=== PATIENT | male | born 1955 | race Caucasian/White ===

== ENCOUNTER 2017-01-17 09:34 | Observation (INO) | payer BC ==
--- NOTE | ~2017-01-17 | HP ---
Unit #: [id number] #: [id number] Patient: SARAH HALE [id number] [address] [address] [id number] I MR#: [id number] NAME: SARAH HALE. ROOM: 579 Age: 61 Sex: M Admission Date: 01/17/2017 : 1955 Attending Physician: Mónica Llanes M.D. Referring Physician: Mónica Llanes M.D. Primary Care Physician: Kayla Monroy M.D. HISTORY AND PHYSICAL DATE OF ANTICIPATED ADMISSION/PROCEDURE January 31, 2017 HISTORY OF PRESENT ILLNESS This is a 61-year-old male known to Dr. Anaya seen in preop testing for a planned left ankle surgery to be done January 31, 2017. EKG showed atrial fibrillation with rapid ventricular rate in the 120s. Patient denies any palpitations, shortness of air, or chest discomfort. He does have a history of paroxysmal atrial fibrillation but has been in normal sinus rhythm for the last year according to the patient. He takes no antiarrhythmics or anticoagulants. He also has a prior history of cardiomyopathy with a documented EF of 30% to 35% per echo in November 2014. In addition, he has a history of diabetes mellitus type 2, chronic kidney disease, hyperlipidemia, hypertension, frequent alcohol use, hypothyroidism, and steatohepatitis. PAST MEDICAL HISTORY 1. Paroxysmal atrial fibrillation, not on anticoagulants. 2. Diabetes mellitus type 2. 3. Chronic kidney disease. 4. Hyperlipidemia. 5. Hypertension. 6. Steatohepatitis. 7. Hypothyroidism. 8. Ethyl alcohol abuse. 9. Tobacco abuse, quit in 2008. 10. Cardiomyopathy with EF of 30% to 35% per November 2014 echo. PAST SURGICAL HISTORY 1. Back surgery in 2007. 2. Right rotator cuff surgery. 3. Umbilical hernia repair. 4. Right hip replacement. 5. Right knee arthroscopy. 6. Left hip replacement. 7. Left knee arthroscopy. SOCIAL HISTORY Patient formerly chewed tobacco but quit in 2008. He does have a history of ETOH abuse. He drinks two vodkas daily reportedly. He denies illicit drug use. FAMILY HISTORY His brother from sudden at age 44. Unit #: [id number] #: [id number] Patient: SARAH HALE ALLERGIES Morphine. HOME MEDICATIONS 1. Synthroid 0.137 mg p.o. once daily. 2. Atorvastatin 40 mg p.o. at bedtime. 3. Januvia 100 mg p.o. once daily. 4. Glimepiride 4 mg p.o. twice daily. 5. Lasix 20 mg p.o. daily. 6. Entresto 24/26 mg tablet 1 tab twice daily. REVIEW OF SYSTEMS Otherwise negative except for what was stated in the History of Present Illness. PHYSICAL EXAMINATION GENERAL: This is a pleasant, 61-year-old male. He is up ad jos and in no acute distress. VITAL SIGNS: Blood pressure 120/68, heart rate 88, temperature 97.7, respiratory rate 18, and saturating 99% on room air. HEENT: Head is atraumatic and normocephalic. Pupils are equal and round. Mucous membranes are moist. NECK: Supple. Trachea is midline. Negative for JVD. LUNGS: Clear to auscultation. CARDIOVASCULAR: S1 and S2, irregularly irregular rhythm. No significant murmurs, rubs, or gallops auscultated. ABDOMEN: Soft, nontender, and nondistended. EXTREMITIES: Pulses are palpable. No pedal edema. No cyanosis. NEUROLOGIC: Alert and oriented x3. Moves all extremities equally and follows commands without difficulty. DIAGNOSTIC STUDIES LABORATORY: CBC and CMP currently pending. CARDIOLOGY: Atrial fibrillation with a ventricular rate of 102. ASSESSMENT 1. Paroxysmal atrial fibrillation with rapid ventricular rate. 2. Cardiomyopathy of questionable etiology with ejection fraction of 30% to 35% per echocardiogram in November 2014. 3. Left posterior tibia tendon tear with planned repair on January 31, 2017. 4. Hypertension. 5. Hyperlipidemia. 6. Diabetes mellitus type 2. 7. Ethyl alcohol abuse. 8. Steatohepatitis. 9. Hypothyroidism. PLAN 1. We will admit to telemetry unit for observation. 2. He is a Full Code. 3. Cardizem bolus and Cardizem drip titrating to keep heart rate less than 100. 4. Anticoagulate with Lovenox. 5. Check TSH level. 6. Echocardiogram. 7. BMP and CBC today, as well as magnesium level. Unit #: [id number] #: [id number] Patient: SARAH HALE 8. Accu-Cheks a.c. and at bedtime. 9. Continue home medications. See home medication reconciliation sheet. 10. Healthy heart, diabetic diet. 11. He will likely need long-term anticoagulation. We will ask career development specialist to check the cost of Eliquis. With his history of chronic kidney disease, he may require renal dose. Await CMP results. 1. Dictated by Nidhi Gomez APRN for Len Campoverde TD: 01/17/2017 17:30 JOB #: [id number] HISTORY AND PHYSICAL Page 1 of 1 X X HISTORY AND PHYSICAL
--- NOTE | ~2017-01-17 | EKG ---
PATIENT: SARAH HALE UNIT #: [id number] Ventricular Rate: 130 BPM Atrial Rate: 153 BPM QRS Duration: 72 ms Q-T Interval: 300 ms QTC Calculation(Bezet): 441 ms Calculated R [place]: 44 degrees Calculated T [place]: 54 degrees Diagnosis Line: Atrial fibrillation with rapid ventricular Diagnosis Line: response with premature ventricular or aberrantly Diagnosis Line: conducted complexes Diagnosis Line: Abnormal ECG Diagnosis Line: When compared with ECG of 30-MAY-2015 12:06, Diagnosis Line: Vent. rate has increased BY 43 BPM Diagnosis Line: Nonspecific T wave abnormality no longer evident Diagnosis Line: in Inferior leads Diagnosis Line: Confirmed by ELIZABETH ELIZABETH MD ([id number]) on Diagnosis Line: 01/17/2017 4:42:55 PM INTERPRETING MD: CLARA CROW
--- NOTE | ~2017-01-17 | DS ---
Unit #: [id number] #: [id number] Patient: SARAH HALE [id number] [address] [place], [place] [address] [id number] I MR#: [id number] NAME: SARAH HALE. ROOM: 579 Age: 61 Sex: M Admission Date: 01/17/2017 : 1955 Discharge Date: 01/18/2017 Attending Physician: Mónica Llanes M.D. Referring Physician: Mónica Llanes M.D. Primary Care Physician: Kayla Monroy M.D. DISCHARGE SUMMARY DISCHARGE DIAGNOSES 1. Paroxysmal atrial fibrillation with a controlled ventricular rate. 2. Cardiomyopathy with ejection fraction of 55% per echo 01/17/2017. 3. Left posterior tendon tibia tear. 4. Hypertension. 5. Hyperlipidemia. 6. Diabetes mellitus type 2. 7. History of ETOH abuse. 8. Steatohepatitis. 9. Hypothyroidism. DISCHARGE MEDICATIONS 1. Lopressor 50 mg by mouth twice a day. 2. Eliquis 5 mg by mouth twice a day. 3. Lipitor 40 mg by mouth once a day. 4. Entresto 24/26 mg by mouth twice a day. 5. Lasix 20 mg by mouth once a day. 6. Januvia 100 mg by mouth every morning. 7. Levoxyl 0.1375 mg by mouth once a day. 8. Glimepiride 4 mg by mouth twice daily. HOSPITAL COURSE This is a 61-year-old male, known to Dr. Anaya, who presented to the hospital on January 17 for preadmission testing for a planned left ankle surgery to be done January 31, 2017. An EKG revealed he was in A-fib with a rapid ventricular rate in the 120s. He denied any palpitations, shortness of air or chest discomfort. He was admitted to telemetry unit for observation. He was bolused with Cardizem and started on a Cardizem drip, as well as started on a p.o. beta latricia. He remained in A-fib throughout the evening but his heart rate decreased down to the 60s. The Cardizem drip was stopped. This morning, he is A-fib with controlled ventricular rate of 89. He would like to go home and is stable for discharge. His CHADS-2 VASc score is a 3 and he will need termite helper anticoagulation. He has been started on Eliquis 5 mg twice a day. He did experience isolated episode of his heart rate increased to the 140s this morning when he was up moving around in his room. We will increase his beta latricia to 50 mg twice a day. He is scheduled for a followup appointment with Dr. Anaya on 01/27/2017, and he is aware that he needs to keep that appointment. ASSESSMENT VITAL SIGNS: Temp 98.4, heart rate 89, respiratory rate 18, blood pressure 116/63. GENERAL: Alert and oriented x3. 61-year-old male in no acute Unit #: [id number] #: [id number] Patient: SARAH HALE. HEART: S1, S2, irregularly irregular. No murmurs, rubs or clicks. LUNGS: Clear. ABDOMEN: Soft, nontender, nondistended. EXTREMITIES: No edema. Pedal pulses are palpable. No cyanosis. DIAGNOSTIC STUDIES LABORATORY: Sodium 135, potassium 4.5, chloride 101, BUN 24, creatinine 1.4, glucose 168, mag 1.6, hemoglobin 13.7, hematocrit 40.4, white blood cell count 6, platelets 116, AST 61, ALT 40, alkaline phos. 42. TSH was 0.81. CARDIOVASCULAR: Echo showed an LVEF of 55% with no wall abnormalities. DISCHARGE INSTRUCTIONS 1. Lopressor 50 mg twice a day. 2. Eliquis 5 mg twice a day. 3. Continue home medications. 4. The patient will be discharged home today. 5. Follow up with Dr. Anaya at already scheduled appointment at 01/27/2017. Dictated by... Nidhi Gomez APRN for Carson Coto M.D. SIMONE/rodrigo TD: 01/19/2017 11:22 JOB #: [id number] DISCHARGE SUMMARY Page 1 of 1 X X DISCHARGE SUMMARY
[~2017-01-17 09:34] MED LIST: AMOX TR-K CLV 81 TA1 PO; ATORVASTATIN CA20 MG PO; ATORVASTATIN CA40 MG PO; BAYER ASPIRIN325 M1 PO; CELEBREX PO; COUMADIN7.5 MG PO; DIGOX0.25 MG PO; ELIQUIS5 MG PO; ETODOLAC500 MG PO; FISH OIL500 MG PO; GLIMEPIRIDE2 MG PO; GLUCOPHAGE500 M1 PO; GLUCOPHAGE500 MG PO; GLUCOSAMINE & C1 CAP PO; HYDROCODON-ACE1 EAC5 PO; HYDROCODON-ACE1 EAC7 PO; JANUVIA PO; LASIX20 MG PO; LEG CRAMPS PO; LEVOTHROID125 MCG PO; LIPITOR20 MG PO; LISINOPRIL20 MG PO; LISINOPRIL5 MG PO; LORTAB 7.5-5001 TAB PO; LORTAB PO; METFORMIN HCL500 M1 PO; METOPROLOL SUCC50 MG PO; MULTIVITAMIN1 UDCAP PO; NORCO 5/325 TAB1 TAB PO; PREVACID15 M1 PO; SYNTHROID PO; SYNTHROID0.05 MG; SYNTHROID125 PO; ZYVOX600 MG PO; [UNRECOGNIZED DRUG - REMARK]
[2017-01-17] MEDS ORDERED: LASIX20 MG PO (10:16)
[2017-01-17] MEDS ORDERED: ENTRESTO 24 MG1 EACH (10:17)
[2017-01-17 11:32] LABS: HEMATOCRIT 45.5 % (38.0-50.0); HEMOGLOBIN 15.2 gm/dL (13.0-16.0); MEAN CELL VOLUME 107.6 FL (83-96); MEAN CORPUSCULAR HGB CONC 33.4 g/dL (30-36); MEAN PLATELET VOLUME 8.5 FL (6.5-11.5); RED BLOOD COUNT 4.23 X10e (3.90-5.60); RED CELL DISTRIBUTION WIDTH 13.6 % (11.0-15.5); WHITE BLOOD COUNT 6.3 X10e3 (4.0-10.5)
[2017-01-17 12:17] LABS: ALBUMIN SERUM 4.6 g/dL (3.5-5.0); BUN/CREATININE RATIO 15.38; CALCIUM SERUM 9.9 mg/dL (8.4-10.2); CREATININE SERUM 1.3 mg/dL (0.6-1.4); GLOM FILT RATE Estimated 59.7 mL/min (>60); POTASSIUM 4.9 mmol/L (3.5-5.1); PROTEIN TOTAL SERUM 7.5 g/dL (6.0-8.3)
[2017-01-18 00:47] LABS: BASOPHIL# 0.1 X10e3 (0-0.3); BASOPHIL% 1.1 % (0-2.5); EOSINOPHIL# 0.5 X10e3 (0-0.7); EOSINOPHIL% 6.2 % (0.0-7.0); HEMATOCRIT 43.4 % (38.0-50.0); HEMOGLOBIN 14.6 gm/dL (13.0-16.0); LYMPHOCYTE# 2.8 X10e3 (1.0-3.5); LYMPHOCYTE% 36.7 % (17.0-45.0); MEAN CELL VOLUME 107.8 FL (83-96); MEAN CORPUSCULAR HEMOGLOBIN 36.2 PG (28-34); MEAN CORPUSCULAR HGB CONC 33.6 g/dL (30-36); MEAN PLATELET VOLUME 8.7 FL (6.5-11.5); MONOCYTE# 0.8 X10e3 (0-1.0); NEUTROPHIL# 3.4 X10e3 (1.5-7.1); PLATELET COUNT 127 X10e3 (140-420); RED BLOOD COUNT 4.02 X10e (3.90-5.60); RED CELL DISTRIBUTION WIDTH 13.2 % (11.0-15.5); WHITE BLOOD COUNT 7.6 X10e3 (4.0-10.5)
[2017-01-18 00:48] LABS: DIFF IND YES
[2017-01-18 01:32] LABS: ANISOCYTOSIS SL; OVALOCYTES PRESENT; PLATELET ESTIMATE DECREASED (NORMAL)
[2017-01-18 05:52] LABS: BASOPHIL# 0.1 X10e3 (0-0.3); EOSINOPHIL# 0.4 X10e3 (0-0.7); EOSINOPHIL% 6.6 % (0.0-7.0); HEMATOCRIT 40.4 % (38.0-50.0); HEMOGLOBIN 13.7 gm/dL (13.0-16.0); LYMPHOCYTE# 1.9 X10e3 (1.0-3.5); LYMPHOCYTE% 31.8 % (17.0-45.0); MEAN CELL VOLUME 106.5 FL (83-96); MEAN CORPUSCULAR HEMOGLOBIN 36.2 PG (28-34); MEAN PLATELET VOLUME 8.5 FL (6.5-11.5); MONOCYTE# 0.8 X10e3 (0-1.0); MONOCYTE% 12.5 % (3.0-12.0); NEUTROPHIL# 2.9 X10e3 (1.5-7.1); NEUTROPHIL% 48.1 % (40-75); PLATELET COUNT 116 X10e3 (140-420); RED BLOOD COUNT 3.79 X10e (3.90-5.60); RED CELL DISTRIBUTION WIDTH 13.6 % (11.0-15.5)
[2017-01-18 05:53] LABS: DIFF IND NO
[2017-01-18 06:29] LABS: BUN/CREATININE RATIO 17.14; CALCIUM SERUM 9.7 mg/dL (8.4-10.2); CREATININE SERUM 1.4 mg/dL (0.6-1.4); GLOM FILT RATE Estimated 54.6 mL/min (>60); MAGNESIUM 1.6 mg/dL (1.6-3.0); POTASSIUM 4.5 mmol/L (3.5-5.1)
[2017-01-18] MEDS ORDERED: LOPRESSOR PO (12:26)
[2017-01-18] MEDS ORDERED: ELIQUIS5 MG PO (12:27)
== END 2017-01-18 13:54 | disposition home or self-care (01) | DRG 310 ==
LOC: CAMB 09:34 → CEDOF 11:30 → CAMB 11:57 → C5C 11:57 → CEDOF 13:10 → C5C 13:10
PROVIDERS: Orthopaedic Surgery
DX: I48.0 Paroxysmal atrial fibrillation (principal); I42.9 Cardiomyopathy, unspecified; S86.112A Strain of other muscle(s) and tendon(s) of posterior muscle group at lower leg level, left leg, initial encounter; I10 Essential (primary) hypertension; E78.5 Hyperlipidemia, unspecified; E11.9 Type 2 diabetes mellitus without complications; Z79.01 Long term (current) use of anticoagulants; Z79.84 Long term (current) use of oral hypoglycemic drugs; K75.81 Nonalcoholic steatohepatitis (NASH); E03.9 Hypothyroidism, unspecified; F10.10 Alcohol abuse, uncomplicated; Z87.891 Personal history of nicotine dependence; Z88.5 Allergy status to narcotic agent
CPT/HCPCS: 36415; 80048; 80053; 82947; 83735; 84443; 85025; 85027; 93005; 93306; 96372; G0378; J1650; J3475

== ENCOUNTER 2017-01-31 05:22 | Inpatient (IN) | payer BC ==
--- NOTE | ~2017-01-31 | DS ---
Unit #: [id number] #: [id number] Patient: SARAH HALE [id number] [address] [place], [place] [address] [id number] I MR#: [id number] NAME: SARAH HALE ROOM: 575 Age: 61 Sex: M Admission Date: 01/31/2017 : 1955 Discharge Date: 02/03/2017 Attending Physician: Mónica Llanes M.D. Referring Physician: Mónica Llanes M.D. Primary Care Physician: Kayla Monroy M.D. DISCHARGE SUMMARY REASON FOR ADMISSION Patient was admitted on 01/31/2017 with the preoperative diagnosis of left ankle degenerative joint disease with a posterior tibial tendon tear. DISCHARGE DIAGNOSIS Status post left ankle fusion with lateral column lengthening, Cotton procedure, flexor digitorum longus transfer. 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 He has been using an antiinflammatory medication for pain. Patient was not responding to conservative treatment. Radiographs were consistent with a stage 4 posterior tibial tendon dysfunction and ankle degenerative joint disease. Patient agreed to surgical intervention. PAST MEDICAL HISTORY Past medical history is positive for alcohol abuse, hyperlipidemia, hypothyroidism, osteopenia, type 2 diabetes and degenerative disc disease. PAST SURGICAL HISTORY Prior surgical history included back surgery, hernia repair, hip replacement, inguinal hernia repair, rotator cuff repair, left knee replacement, right carpal tunnel surgery. SOCIAL HISTORY The patient does not smoke. He has a history of alcohol abuse. ALLERGIES Morphine derivatives. PHYSICAL EXAMINATION UPON ADMISSION GENERAL APPEARANCE: Obese male in no acute distress. HEENT: Clear. NECK: Supple without masses. HEART: With a regular sinus rhythm, without murmurs or gallops. LUNGS: His lungs were clear. ABDOMEN: Abdomen was soft and nontender, without palpable masses or organomegaly. EXTREMITIES: The patient's left lower extremity with flat arch and abduction of the forefoot. The patient's right heel is in 2 degrees of valgus. Positive rjc-[id number]-zkys sign. Patient is unable to perform a single left heel rise. Left ankle dorsiflexion with the foot held in the Unit #: [id number] #: [id number] Patient: SARAH HALE corrected position is -10 degrees. Plantar flexion is to 40 degrees. Subtalar motion is normal. First MTP joint is normal. Patient has point tenderness over the anterior space of the tibiotalar joint. Motor exam is normal except for no active inversion of the hindfoot. Posterior tibial tendon is not palpated. Pulses were normal. Sensation was normal. HOSPITAL COURSE Patient underwent surgical intervention on date of admission, was transferred to the PACU and then to telemetry floor. He was doing well until postop day two, developed atrial fibrillation and flutter. Seen by Cardiology and was able to be converted to sinus rhythm with medical management of amiodarone. He was seen by physical therapy while he was in the hospital. On postop day three he was stable from a Cardiology standpoint and was ready to be discharged. DISCHARGE MEDICATIONS The patient's discharge medications are as follows: 1. Entresto 24/26 mg tablet one tablet b.i.d. 2. Eliquis 5 mg one p.o. b.i.d. 3. Januvia 100 mg p.o. q.a.m. 4. Atorvastatin 40 mg one p.o. q.h.s. 5. Cartia XT 120 mg one tab p.o. b.i.d. 6. Lopressor 50 mg one p.o. b.i.d. 7. Lasix 20 mg one p.o. daily. 8. Lipitor 40 mg one p.o. q.h.s. 9. Oxycodone was prescribed for pain 05/325 one to two tablets q.4-6 h. p.r.n. for pain. 10. Glimepiride 4 mg one p.o. b.i.d. 11. Levothyroxine 0.137 mg daily before breakfast. 12. Amiodarone 200 mg two tabs on night of discharge, two tabs b.i.d. the following day then 200 mg p.o. daily. DISCHARGE INSTRUCTIONS 1. Patient is to be strictly nonweightbearing on the left lower extremity. 2. Dressing is to remain clean, dry and intact until followup appointment in our office. 3. The patient's postoperative followup is scheduled within the next 10 to 14 days in the office. 4. He was instructed to follow up with cardiology in four days from discharge. 5. Any questions or concerns, he is to call our office [phone]. Dictated by... Saloni Cerda P.A.-C. for Len Rashid/arleen TD: 02/07/2017 14:29 JOB #: [id number] Unit #: [id number] #: [id number] Patient: SARAH HALE DISCHARGE SUMMARY Page 1 of 1 X Saloni Cerda DISCHARGE SUMMARY
--- NOTE | ~2017-01-31 | EKG ---
PATIENT: SARAH HALE UNIT #: [id number] Ventricular Rate: 114 BPM Atrial Rate: 258 BPM QRS Duration: 72 ms Q-T Interval: 308 ms QTC Calculation(Bezet): 424 ms Calculated R [place]: 46 degrees Calculated T [place]: -10 degrees Diagnosis Line: Atrial fibrillation with rapid ventricular Diagnosis Line: response with premature ventricular or aberrantly Diagnosis Line: conducted complexes Diagnosis Line: Low voltage QRS Diagnosis Line: Abnormal ECG Diagnosis Line: When compared with ECG of 17-JAN-2017 10:05, Diagnosis Line: Nonspecific T wave abnormality now evident in Diagnosis Line: Inferior leads Diagnosis Line: Confirmed by ELIZABETH ELIZABETH MD ([id number]) on Diagnosis Line: 02/02/2017 3:07:59 PM INTERPRETING MD: CLARA CROW
--- NOTE | ~2017-01-31 | CO ---
Unit #: [id number] #: [id number] Patient: SARAH HALE [id number] [address] [address] [id number] I MR#: [id number] NAME: SARAH HALE. ROOM: 452 Age: 61 Sex: M Admission Date: 01/31/2017 : 1955 Attending Physician: Mónica Llanes M.D. Primary Care Physician: Kayla Monroy M.D. Consultation Date: 01/31/2017 CONSULTATION REPORT REASON FOR CONSULTATION Diabetic management. HISTORY OF PRESENT ILLNESS The patient is a 61-year-old male with past medical history of hypertension, hyperlipidemia, diabetes, atrial fibrillation, chronic anticoagulation, hypothyroidism, alcohol abuse, who was admitted by Dr. Llanes for left ankle surgery. The patient has had ongoing foot pain and deformity. He has reportedly been treated with a Cam boot. Per record review, radiographs were consistent with stage 4 posterior tibial tendon dysfunction. He was admitted for ankle fusion and flatfoot reconstruction. He underwent that procedure today. Regarding the patient's chronic medical conditions, the patient states that he has been taking his medications as prescribed. He is a daily drinker. He drinks two drinks daily, his last drink was yesterday. He states that his blood sugars have been in the 120 to 130 range. PAST MEDICAL HISTORY 1. Admission to [facility] 01/17 through 01/18/2017 for atrial fibrillation. He was discharged home on Eliquis. He is followed by Dr. Anaya. 2. Hypertension. 3. Hyperlipidemia. 4. Hypothyroidism. 5. Diabetes. 6. Echocardiogram, per the discharge summary 01/17/2017, showed an ejection fraction of 55%. PAST SURGICAL HISTORY 1. Left ankle surgery. 2. Back surgery. 3. Rotator cuff surgery. 4. Umbilical hernia repair. 5. Right hip replacement. 6. Right knee surgery. 7. Left hip replacement. 8. Left knee surgery. HOME MEDICATIONS 1. Synthroid 0.137 mg daily. 2. Atorvastatin 40 mg daily. Unit #: [id number] #: [id number] Patient: SARAH HALE 3. Januvia 100 mg daily. 4. Glimepiride 4 mg b.i.d. 5. Lasix 20 mg daily. 6. Entresto 24/26 b.i.d. 7. Lopressor 50 mg b.i.d. 8. Eliquis 5 mg b.i.d. ALLERGIES Morphine. SOCIAL HISTORY The patient denies tobacco use. He formerly chewed tobacco. He has a history of alcohol abuse. He drinks two vodka drinks daily. He denies illicit drug use. FAMILY HISTORY Notable for his brother dying at the age of 44. REVIEW OF SYSTEMS A complete review of systems is negative except as indicated in the HPI. PHYSICAL EXAMINATION VITAL SIGNS: Temperature 97.7, pulse 52, respirations 19, blood pressure 84/46, oxygen saturation not recorded. GENERAL: The patient is a male who is awake and alert in no acute distress. HEENT: Head is atraumatic. Mucous membranes are moist. NECK: Supple. Trachea is midline. LUNGS: Clear to auscultation bilaterally with no increased work of breathing. HEART: Irregular. ABDOMEN: Soft, nontender. Bowel sounds present in all four quadrants. EXTREMITIES: A left Mikel bandage is in place. There is no pedal edema involving the right leg. NEUROLOGIC: Patient is awake and alert. He follows commands. PSYCHIATRIC: Mood and affect are normal. Patient is cooperative. SKIN OF EXAMINED AREAS: Warm and dry. DIAGNOSTIC STUDIES LABORATORY: Accu-Cheks 134. ASSESSMENT The patient is a 61-year-old male with: 1. Status post left ankle surgery. 2. Hypotension. 3. Diabetes. 4. Hyperlipidemia. 5. Atrial fibrillation. 6. Chronic anticoagulation with Eliquis. 7. Hypothyroidism. 8. Alcohol abuse with last drink being yesterday. PLAN 1. Regarding hypotension, I have ordered a 500 mL normal saline bolus. I have discontinued his ACTUARY pump. I have changed him to a monitored bed and will hold antihypertensive medications for now. Will continue to monitor blood pressure closely. 2. Regarding diabetes, I have ordered low-dose sliding scale insulin Unit #: [id number] #: [id number] Patient: ALEXIASARAH Knight with Accu-Cheks. 3. Regarding hypothyroidism, I have ordered a TSH. 4. Regarding alcohol abuse, I have ordered thiamine, multivitamin and folic acid as well as the [place] protocol. Thank you very much for the consultation. Will follow the patient along closely with you. Dictated by... Len Candelaria/mary TD: 01/31/2017 15:55 JOB #: [id number] CONSULTATION REPORT Page 1 of 1 X Talita Thompson MD X CONSULTATION REPORT
--- NOTE | ~2017-01-31 | OR ---
Unit #: [id number] #: [id number] Patient: SARAH HALE [id number] [address] [place], [place] [address] [id number] I MR#: [id number] NAME: SARAH HALE ROOM: 452 Date of Procedure: 01/31/2017 Admission Date: 01/31/2017 Surgeon: Mónica Llanes M.D. : 1955 Attending Physician: Mónica Llanes M.D. Referring Physician: Mónica Llanes M.D. Primary Care Physician: aKyla Monroy M.D. OPERATIVE REPORT PREOPERATIVE DIAGNOSES 1. Left ankle degenerative arthritis. 2. Stage IV left posterior tibial tendon tear. POSTOPERATIVE DIAGNOSES 1. Left ankle degenerative arthritis. 2. Stage IV left posterior tibial tendon tear. PROCEDURES PERFORMED 1. Left ankle fusion (71166). 2. Left flexor digitorum longus tendon transfer to navicular (29707). 3. Left Cotton procedure (dorsal opening wedge osteotomy of medial cuneiform) (07823). 4. Left lateral column lengthening (26048). ASSISTANTS MD Radha and ROBERTO Lane ANESTHESIA Popliteal saphenous block and general. INDICATIONS FOR SURGERY The patient is a 61-year-old male with stage IV left posterior tibial tendon dysfunction, which has been unresponsive to conservative care. He is now to undergo ankle fusion with reconstruction of his foot deformity. DESCRIPTION OF PROCEDURE The patient underwent popliteal saphenous block to the left leg. He was taken to the operating room and placed in a supine position, and general anesthetic was induced. The left leg was then prepped and draped in the usual sterile fashion. The leg was exsanguinated and the thigh tourniquet inflated to 300 mmHg. An anterolateral longitudinal incision was made over the ankle measuring 8 cm. Subcutaneous tissue was divided. Superficial peroneal nerve was identified and preserved. The extensor retinaculum was opened. The extensor tendons were retracted medially. The joint was exposed with subperiosteal dissection. The power osteotome, curved curettes, and rongeurs were utilized to remove the articular cartilage from both sides of the arthritic ankle joint. The underlying subchondral bone was then roughened with the power osteotome. 3 mL of Augment platelet-derived growth factor as well as allograft bone chips were placed into the tibiotalar joint. The joint was then positioned appropriately and fixated with 2 crossed OrthoHelix 7.0 mm diameter Unit #: [id number] #: [id number] Patient: SARAH HALE cannulated screws. Excellent fixation was achieved, and intraoperative C-arm fluoroscopy documented screw position and joint position. A lateral longitudinal incision was then made over the anterior calcaneus. Subcutaneous tissue was divided. The lateral calcaneus was exposed with subperiosteal dissection. The calcaneocuboid joint was then pinned in neutral position with a 0.062-inch diameter smooth K-wire. The microsagittal saw was then used to osteotomize the calcaneus at the angle of Gissane 2 cm proximal to the calcaneocuboid joint. The osteotomy was then opened with the power osteotome. A trial reduction with an 8-mm Memorado Biofoam metal wedge fit most appropriately and reduced the talonavicular joint deformity. The wedge was then impacted into place with excellent fit and fill of the osteotomy site. No additional fixation was required. A medial longitudinal incision was then made over the posterior tibial tendon sheath measuring 6 cm. The subcutaneous tissue was divided. The tendon sheath was opened. There was extensive scarring of the tendon to the surrounding sheath and it was totally dysfunctional. The posterior tibial tendon was then excised. There was a tear in the spring ligament. The tear was freshened with a #15 scalpel blade and then the spring ligament was repaired with multiple #2 FiberWire [id number] sutures. The flexor digitorum longus tendon was then identified in its sheath and it was cut at the Knot of Cheo. A 4.5 mm diameter OrthoHelix suture anchor was then placed in the navicular under C-arm fluoroscopic control, and the two attached #2 FiberWire sutures were used to repair the FDL tendon back down to the navicular. An excellent repair was achieved. A dorsal longitudinal incision was then made over the medial cuneiform. The extensor hallucis longus tendon was retracted. The medial cuneiform was exposed with subperiosteal dissection. A K-wire was placed in a center-center position into the medial cuneiform, and this K-wire was used as a guide to osteotomize the medial cuneiform from dorsal to plantar, leaving the plantar cortex intact. A trial reduction was performed with a 6.5 mm wide trial and this fit appropriately. Therefore, the Memorado Biofoam cotton wedge measuring 20 mm x 6.5 mm in width was impacted into place and this corrected the residual forefoot varus nicely. All wounds were copiously irrigated. The deep tendon sheaths were closed with 2-0 Vicryl [id number] sutures. The extensor retinaculum was closed with 2-0 Vicryl, subcutaneous tissue was closed with 3-0 Vicryl, and the skin was closed with 3-0 nylon horizontal mattress sutures. Xeroform gauze dressing, sponges, Webril, and a posterior fiberglass splint were applied. The patient was then transported to the recovery room in stable condition. ESTIMATED BLOOD LOSS Minimal. COMPLICATIONS None. SPECIMENS None. TOURNIQUET TIME 2 hours and 5 minutes. Unit #: [id number] #: [id number] Patient: CHEOSARAH Antonia Gomez by..Len Castaneda/deng TD: 02/01/2017 04:54 JOB #: [id number] OPERATIVE REPORT Page 1 of 1 X Dana Llanes MD X PROCEDURE OPERATIVE NOTE
--- NOTE | ~2017-01-31 | EKG ---
PATIENT: SARAH HALE UNIT #: [id number] Ventricular Rate: 135 BPM Atrial Rate: 270 BPM QRS Duration: 84 ms Q-T Interval: 286 ms QTC Calculation(Bezet): 429 ms P [place]: 265 degrees Calculated R [place]: 46 degrees Calculated T [place]: 15 degrees Diagnosis Line: Atrial flutter with 2:1 A-V conduction Diagnosis Line: Low voltage QRS Diagnosis Line: Nonspecific ST abnormality Diagnosis Line: Abnormal ECG Diagnosis Line: When compared with ECG of 02-FEB-2017 02:49, Diagnosis Line: (unconfirmed) Diagnosis Line: Atrial flutter has replaced Atrial fibrillation Diagnosis Line: ST now depressed in Inferior leads Diagnosis Line: Confirmed by ELIZABETH ELIZABETH MD ([id number]) on Diagnosis Line: 02/02/2017 3:08:08 PM INTERPRETING MD: CLARA CROW
--- NOTE | ~2017-01-31 | CO ---
Unit #: [id number] #: [id number] Patient: SARAH HALE [id number] [facility]. [place], [place] [address] [id number] MR#: [id number] NAME: SARAH HALE ROOM: 575 Age: 61 Sex: M Admission Date: 01/31/2017 : 1955 Attending Physician: Mónica Llanes M.D. Primary Care Physician: Kayla Monroy M.D. Consultation Date: 02/02/2017 CONSULTATION REPORT DICTATED FOR Dr. Hughes with [facility]. REASON FOR CONSULT Atrial fibrillation. HISTORY OF PRESENT ILLNESS The patient is a 61-year-old white male, who sees Dr. Anaya for history of paroxysmal atrial fib and flutter, history of systolic CHF with reported improvement of EF on Entresto per patient, hypertension, diabetes, hyperlipidemia, hypothyroid and occurred daily two vodka shots of alcohol consumption. The patient came in for elective surgery on his left ankle for an ankle fusion and flat foot surgery. The patient states that he came in for his preop testing at the beginning of 01/2017 and when EKG was done there, he was determined to be in atrial fibrillation. He was sent to Dr. Anaya, who he saw on 01/17/2017 in the office and at that time, his EKG showed normal sinus rhythm. The patient was cleared for surgery and had surgery on 01/31/2017. At 2:00 a.m., this morning, the patient's rhythm changed to atrial fibrillation and flutter with elevated rates into the 150s and 160s. The patient was given IV Lopressor as well as some IV Cardizem and then started on a Cardizem drip. At this time, his heart rate is staying elevated in the 120s to 130s. The patient is also on his home dose of Lopressor 50 b.i.d., which was given around 2:30 this morning as well. The patient denies any chest pain, pressure, or tightness. No palpitations, dizziness, or lightheadedness. He has never been symptomatic with the changes in his rhythm and as far as he knows, he has been in and out of his rhythm three or four times over the past 2 years. Last echo was done in Dr. Anaya' office, where the patient states that his EF had improved; however, there is no documentation of what that was in [facility]. EF prior to that was 30% to 35%. The patient states he has never had a heart catheterization or stents placed for any reason. PAST MEDICAL HISTORY 1. Paroxysmal atrial fibrillation. 2. History of systolic heart failure. 3. Osteoarthritis. 4. Diabetes. 5. Hypertension. 6. GERD. 7. Hyperlipidemia. 8. Daily alcohol abuse. 9. Hypothyroid. Unit #: [id number] #: [id number] Patient: SARAH HALE PAST SURGICAL HISTORY 1. Back surgery. 2. Abdominal hernia surgery. 3. Two hip surgeries. 4. Inguinal hernia repair. 5. Rotator cuff surgery. 6. Left knee surgery. SOCIAL HISTORY The patient denies ever being a smoker, but states that he does drink two vodka shots daily with orange juice. He states that he did quit for a couple of months; however, for the past 2 years, he has been drinking daily again. He denies any other drug abuse or illicit drug use. REVIEW OF SYSTEMS See HPI. PHYSICAL EXAMINATION GENERAL: This is a 61-year-old white male, who is alert and oriented x3, in no apparent distress. VITAL SIGNS: Blood pressure 104/63, temp 98.1, pulse 72, respirations 20. HEENT: Pupils are equal, round, and reactive. Oral mucosa is moist. NECK: No JVD. No thyromegaly. No lymphadenopathy. No carotid bruits. HEART: S1 and S2. No S3 or S4. Irregularly irregular rhythm. No murmurs, clicks, no rubs, no murmurs. LUNGS: Clear. ABDOMEN: Soft. Bowel sounds positive. Nontender, nondistended. EXTREMITIES: No swelling. NEUROLOGICAL: No neuro deficits noted. ALLERGIES Include morphine. HOME MEDICATIONS Include Synthroid 0.137 mg p.o. daily before breakfast, atorvastatin 40 mg p.o. at bedtime, Januvia 100 mg p.o. in the morning, glimepiride 4 mg p.o. b.i.d. Lasix 2 mg p.o. daily, Entresto 24/26 mg one tab b.i.d., Lopressor 50 mg p.o. b.i.d., Eliquis 5 mg p.o. b.i.d. DIAGNOSTIC STUDIES LABORATORY RESULTS: White count 5.3, hemoglobin 10.4, hematocrit 30.9, platelets 66. Sodium 131, potassium 3.9, chloride 105, CO2 of 21, BUN 13, creatinine 1.1, glucose 220. CARDIOVASCULAR STUDIES: EKG shows atrial fibrillation with a rate of 136. IMPRESSION 1. Paroxysmal atrial fib with current rapid ventricular response. 2. Status post left ankle fusion and flat foot repair on 01/31/2017. 3. Daily EtOH consumption. 4. Hypertension. 5. Diabetes. 6. Hyperlipidemia. 7. History of systolic heart failure. PLAN We will discuss with Dr. Hughes about switching to either amiodarone drip Unit #: [id number] #: [id number] Patient: SARAH HALE or using other options for better rate control. Blood pressure is borderline. We will have to monitor closely on the Cardizem drip. We will obtain 2D echo to check LV function and valves for any abnormalities. We will check labs in the morning. Further recommendations pending review by Dr. Hughes and current testing workup. Dictated by... DENISE Hou TD: 02/03/2017 12:09 JOB #: [id number] CONSULTATION REPORT Page 1 of 1 X X CONSULTATION REPORT
--- NOTE | ~2017-01-31 | EKG ---
PATIENT: SARAH HALE UNIT #: [id number] Ventricular Rate: 64 BPM Atrial Rate: 64 BPM P-R Interval: 174 ms QRS Duration: 70 ms Q-T Interval: 372 ms QTC Calculation(Bezet): 383 ms P [place]: 76 degrees Calculated R [place]: 81 degrees Calculated T [place]: 37 degrees Diagnosis Line: Normal sinus rhythm Diagnosis Line: Normal ECG Diagnosis Line: When compared with ECG of 02-FEB-2017 06:26, Diagnosis Line: (unconfirmed) Diagnosis Line: Sinus rhythm has replaced Atrial flutter Diagnosis Line: Vent. rate has decreased BY 71 BPM Diagnosis Line: ST no longer depressed in Inferior leads Diagnosis Line: ST less depressed in Anterior leads Diagnosis Line: Confirmed by JENN HELMS MD ([id number]) on 02/02/2017 Diagnosis Line: 8:42:50 PM INTERPRETING MD: SCOOTER CROW
--- NOTE | ~2017-01-31 | HP ---
Unit #: [id number] #: [id number] Patient: SARAH HALE [id number] [address] [address] [id number] MR#: [id number] NAME: SARAH HALE. ROOM: 452 Age: 61 Sex: M Admission Date: 01/31/2017 : 1955 Attending Physician: Mónica Llanes M.D. Referring Physician: Mónica Llanes M.D. Primary Care Physician: Kayla Monroy M.D. HISTORY AND PHYSICAL CHIEF COMPLAINT Left foot pain and deformity. 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 He has significant ongoing foot pain and deformity. He has been treated in a Cam boot. He takes an anti-inflammatory medication for pain. 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 Radiographs are consistent with stage 4 posterior tibial tendon dysfunction. The patient has preexisting history of alcohol abuse and type 2 diabetes. He is, therefore, admitted for ankle fusion and flat foot reconstruction. We also discussed the risks and benefits of a staged procedure to include ankle replacement but, due to the patient's underlying medical problems, we have elected to proceed with ankle fusion. PAST MEDICAL HISTORY Alcohol abuse, hyperlipidemia, hypothyroidism, osteopenia, type 2 diabetes, degenerative disc disease. PAST SURGICAL HISTORY Back surgery, hernia repair, hip replacement, inguinal hernia repair, rotator cuff repair, left knee replacement, right carpal tunnel surgery. SOCIAL HISTORY The patient has a history of alcohol abuse. He is a nonsmoker. FAMILY HISTORY Diabetes, high blood pressure, hyperlipidemia. DRUG ALLERGIES Morphine derivatives. HOME MEDICATIONS 1. Atorvastatin. 2. Lasix. 3. Glimepiride. 4. Januvia. 5. Levothyroxine. 6. Oxycodone. REVIEW OF SYSTEMS Unremarkable. PHYSICAL EXAMINATION Unit #: [id number] #: [id number] Patient: SARAH HALE GENERAL APPEARANCE: Mildly obese male in no acute distress. VITAL SIGNS: Height 5'9". Weight 195 lb. BMI 29. HEENT: Pharynx is clear. NECK: Supple without masses. HEART: Regular sinus rhythm without murmurs or gallops. LUNGS: Clear. ABDOMEN: Soft and nontender without masses or organomegaly. EXTREMITIES: Evaluation of the left foot shows a flat arch with abduction of the forefoot. The patient stats with 16 degrees of left heel valgus. His right heel is in 2 degrees of valgus. He has a positive [id number] sign. He is unable to do a left single heel rise. Left ankle dorsiflexion with the foot held corrected is -10 degrees. Plantar flexion is 40 degrees. Subtalar motion is normal. First MTP joint motion is normal. The patient is point tender in the anterior aspect of the tibiotalar joint. Motor exam is normal except the patient has no active inversion of the hindfoot. The posterior tibial tendon is not palpated. Pulses are normal. Sensation is normal. DIAGNOSTIC STUDIES IMAGING: Standing x-rays of the left ankle show 20 degrees of uncontained ankle valgus. Standing left foot x-rays show a lateral talar first metatarsal angle of -32 degrees, calcaneal pitch 24 degrees and medial cuneiform height of 0 mm. ADMITTING DIAGNOSIS Stage 4 left posterior tibial tendon dysfunction. PLAN The patient has failed conservative care. We discussed options of a staged deltoid ligament reconstruction for pleuro arthrodesis followed by ankle replacement versus stage IIb posterior tibial tendon reconstruction with ankle fusion. The patient elects for the second option. This procedure was described along with risks of bleeding, infection, nerve damage, need for further surgery in the future, nonunion, malunion, prolonged recovery time, deep venous thrombosis, pulmonary embolism, anesthetic complications. The patient understands that it will take a year before he is done getting over his surgery. He will most likely be on some limited duty for at least six months postoperatively. Dictated by Len Rashid/yanet TD: 01/30/2017 08:28 JOB #: [id number] HISTORY AND PHYSICAL Page 1 of 1 X Dana Llanes MD HISTORY AND PHYSICAL
[~2017-01-31 05:22] MED LIST changes: +ENTRESTO 24 MG1 EACH; +LOPRESSOR PO
[2017-01-31 15:45] LABS: BASOPHIL# 0.1 X10e3 (0-0.3); BASOPHIL% 0.8 % (0-2.5); EOSINOPHIL# 0.1 X10e3 (0-0.7); EOSINOPHIL% 1.8 % (0.0-7.0); HEMATOCRIT 39.2 % (38.0-50.0); LYMPHOCYTE# 1.5 X10e3 (1.0-3.5); LYMPHOCYTE% 19.2 % (17.0-45.0); MEAN CELL VOLUME 108.5 FL (83-96); MEAN CORPUSCULAR HEMOGLOBIN 35.9 PG (28-34); MEAN CORPUSCULAR HGB CONC 33.1 g/dL (30-36); MEAN PLATELET VOLUME 8.8 FL (6.5-11.5); MONOCYTE# 0.5 X10e3 (0-1.0); MONOCYTE% 6.9 % (3.0-12.0); NEUTROPHIL# 5.5 X10e3 (1.5-7.1); NEUTROPHIL% 71.3 % (40-75); PLATELET COUNT 109 X10e3 (140-420); RED BLOOD COUNT 3.61 X10e (3.90-5.60); RED CELL DISTRIBUTION WIDTH 13.4 % (11.0-15.5); WHITE BLOOD COUNT 7.7 X10e3 (4.0-10.5)
[2017-01-31 15:47] LABS: DIFF IND YES
[2017-01-31 16:06] LABS: PLATELET ESTIMATE DECREASED (NORMAL)
[2017-01-31 16:35] LABS: THYROID STIMULATING HORMONE 0.12 uIU/ml (0.34-5.60)
[2017-01-31 16:42] LABS: FREE THYROXIN (T4) 1.56 ng/dL (0.58-1.64)
[2017-01-31 16:56] LABS: BILIRUBIN,TOTAL 0.5 mg/dL (0.2-2.0); BUN/CREATININE RATIO 28.57; CALCIUM SERUM 8.3 mg/dL (8.4-10.2); CREATININE SERUM 1.4 mg/dL (0.6-1.4); GLOM FILT RATE Estimated 54.6 mL/min (>60); POTASSIUM 5.1 mmol/L (3.5-5.1); PROTEIN TOTAL SERUM 6.8 g/dL (6.0-8.3)
[2017-02-01 03:26] LABS: BASOPHIL% 0.6 % (0-2.5); EOSINOPHIL# 0.3 X10e3 (0-0.7); EOSINOPHIL% 3.8 % (0.0-7.0); HEMATOCRIT 34.2 % (38.0-50.0); HEMOGLOBIN 11.5 gm/dL (13.0-16.0); LYMPHOCYTE# 1.5 X10e3 (1.0-3.5); LYMPHOCYTE% 20.8 % (17.0-45.0); MEAN CORPUSCULAR HEMOGLOBIN 36.4 PG (28-34); MEAN CORPUSCULAR HGB CONC 33.7 g/dL (30-36); MEAN PLATELET VOLUME 8.7 FL (6.5-11.5); MONOCYTE# 0.9 X10e3 (0-1.0); MONOCYTE% 12.6 % (3.0-12.0); NEUTROPHIL# 4.3 X10e3 (1.5-7.1); NEUTROPHIL% 62.2 % (40-75); RED BLOOD COUNT 3.17 X10e (3.90-5.60); RED CELL DISTRIBUTION WIDTH 13.7 % (11.0-15.5)
[2017-02-01 03:40] LABS: ALBUMIN SERUM 3.9 g/dL (3.5-5.0); BILIRUBIN,TOTAL 0.6 mg/dL (0.2-2.0); BUN/CREATININE RATIO 23.07; CREATININE SERUM 1.3 mg/dL (0.6-1.4); GLOM FILT RATE Estimated 59.7 mL/min (>60); MAGNESIUM 1.1 mg/dL (1.6-3.0); POTASSIUM 4.1 mmol/L (3.5-5.1); PROTEIN TOTAL SERUM 6.7 g/dL (6.0-8.3)
[2017-02-01 03:46] LABS: DIFF IND YES; PLATELET COUNT 92 X10e3 (140-420)
[2017-02-01 03:49] LABS: PLATELET ESTIMATE DECREASED (NORMAL)
[2017-02-01 03:50] LABS: RBC NORMAL YES
[2017-02-02 02:39] LABS: BASOPHIL% 0.3 % (0-2.5); EOSINOPHIL# 0.3 X10e3 (0-0.7); EOSINOPHIL% 5.3 % (0.0-7.0); HEMATOCRIT 30.9 % (38.0-50.0); HEMOGLOBIN 10.4 gm/dL (13.0-16.0); LYMPHOCYTE# 0.9 X10e3 (1.0-3.5); LYMPHOCYTE% 16.2 % (17.0-45.0); MEAN CELL VOLUME 107.4 FL (83-96); MEAN CORPUSCULAR HEMOGLOBIN 36.2 PG (28-34); MEAN CORPUSCULAR HGB CONC 33.7 g/dL (30-36); MEAN PLATELET VOLUME 8.7 FL (6.5-11.5); MONOCYTE# 0.6 X10e3 (0-1.0); MONOCYTE% 10.6 % (3.0-12.0); NEUTROPHIL# 3.6 X10e3 (1.5-7.1); NEUTROPHIL% 67.6 % (40-75); RED BLOOD COUNT 2.88 X10e (3.90-5.60); RED CELL DISTRIBUTION WIDTH 13.1 % (11.0-15.5); WHITE BLOOD COUNT 5.3 X10e3 (4.0-10.5)
[2017-02-02 02:41] LABS: DIFF IND NO; PLATELET COUNT 66 X10e3 (140-420)
[2017-02-02 02:52] LABS: BUN/CREATININE RATIO 12.72; CALCIUM SERUM 7.9 mg/dL (8.4-10.2); CREATININE SERUM 1.1 mg/dL (0.6-1.4); GLOM FILT RATE Estimated 73.1 mL/min (>60); MAGNESIUM 1.4 mg/dL (1.6-3.0)
[2017-02-02 03:07] LABS: HEMATOCRIT 30.3 % (38.0-50.0); HEMOGLOBIN 10.5 gm/dL (13.0-16.0)
[2017-02-02 03:25] LABS: BUN/CREATININE RATIO 11.81; CALCIUM SERUM 7.5 mg/dL (8.4-10.2); CREATININE SERUM 1.1 mg/dL (0.6-1.4); GLOM FILT RATE Estimated 73.1 mL/min (>60); MAGNESIUM 1.3 mg/dL (1.6-3.0); POTASSIUM 3.9 mmol/L (3.5-5.1)
[2017-02-02 03:41] LABS: FREE T3 3.3 pg/mL (2.5-3.9)
[2017-02-02 03:43] LABS: FREE THYROXIN (T4) 1.39 ng/dL (0.58-1.64)
[2017-02-02 04:18] LABS: %MB 0.6 % (0.0-4.0); MB 2.8 ng/ml
[2017-02-02 09:45] LABS: URINE APPEARANCE CLEAR; URINE BILIRUBIN NEG (NEG); URINE BLOOD NEG (NEG); URINE COLOR YELLOW; URINE GLUCOSE 500 MG/DL (NEG); URINE KETONE NEG (NEG); URINE LEUKOCYTE ESTERASE NEG (NEG); URINE NITRATE NEG (NEG); URINE PH 6.5 (5-8); URINE PROTEIN NEG (NEG); URINE UROBILINOGEN 0.2 MG/DL (NEG)
[2017-02-02 10:00] LABS: CULTURE INDICATED? NO
[2017-02-02 10:18] LABS: AMPHETAMINE NEG (NEG); BARBITURATES NEG (NEG); BENZODIAZEPINES POS (NEG); COCAINE NEG (NEG); MARIJUANA NEG (NEG); OPIATES POS (NEG); TRICYCLIC ANTIDEPRESSANTS NEG (NEG); U METHADONE NEG (NEG)
[2017-02-03 05:16] LABS: HEMATOCRIT 30.2 % (38.0-50.0); HEMOGLOBIN 10.2 gm/dL (13.0-16.0); MEAN CELL VOLUME 108.5 FL (83-96); MEAN CORPUSCULAR HEMOGLOBIN 36.8 PG (28-34); MEAN PLATELET VOLUME 8.7 FL (6.5-11.5); RED BLOOD COUNT 2.78 X10e (3.90-5.60); RED CELL DISTRIBUTION WIDTH 13.3 % (11.0-15.5)
[2017-02-03 06:06] LABS: CALCIUM SERUM 8.9 mg/dL (8.4-10.2); CREATININE SERUM 1.3 mg/dL (0.6-1.4); GLOM FILT RATE Estimated 59.7 mL/min (>60); MAGNESIUM 1.6 mg/dL (1.6-3.0); POTASSIUM 4.7 mmol/L (3.5-5.1)
[2017-02-03] MEDS ORDERED: AMIODARONE HCL200 MG PO (19:55)
[2017-02-03] MEDS ORDERED: PERCOCET5/325 PO (19:57)
[2017-02-03] MEDS ORDERED: CARTIA XT PO (19:58)
== END 2017-02-03 21:21 | disposition home or self-care (01) | DRG 493 ==
LOC: CSUR 05:22 → C4B 09:59 → CSUR 09:59 → CPACUOF 09:59 → CSUR 10:00 → CPACUOF 10:20 → C4B 12:08 → C5C 02-02 09:33
PROVIDERS: Family Medicine; Internal Medicine; Nurse Practitioner; Orthopaedic Surgery
PROC: 0QBM0ZZ Excision of Left Tarsal, Open Approach (ICD-10-PCS; 2017-01-31)
PROC: 0QHM04Z Insertion of Internal Fixation Device into Left Tarsal, Open Approach (ICD-10-PCS; 2017-01-31)
PROC: 0L8W0ZZ Division of Left Foot Tendon, Open Approach (ICD-10-PCS; 2017-01-31)
PROC: 0SH Lower Joints, Insertion (ICD-10-PCS; 2017-01-31)
PROC: 0SGG0KZ Fusion of Left Ankle Joint with Nonautologous Tissue Substitute, Open Approach (ICD-10-PCS; 2017-01-31)
PROC: 0LXW0ZZ Transfer Left Foot Tendon, Open Approach (ICD-10-PCS; principal; 2017-01-31 07:30)
PROC: 0SGG04Z Fusion of Left Ankle Joint with Internal Fixation Device, Open Approach (ICD-10-PCS; 2017-01-31 07:30)
PROC: B246YZZ Ultrasonography of Right and Left Heart using Other Contrast (ICD-10-PCS; 2017-02-02)
DX: M19.072 Primary osteoarthritis, left ankle and foot (principal); I50.22 Chronic systolic (congestive) heart failure; I11.0 Hypertensive heart disease with heart failure; I95.9 Hypotension, unspecified; M21.962 Unspecified acquired deformity of left lower leg; S86.112A Strain of other muscle(s) and tendon(s) of posterior muscle group at lower leg level, left leg, initial encounter; K21.9 Gastro-esophageal reflux disease without esophagitis; E03.9 Hypothyroidism, unspecified; E11.9 Type 2 diabetes mellitus without complications; Z79.84 Long term (current) use of oral hypoglycemic drugs; Z79.01 Long term (current) use of anticoagulants; E78.5 Hyperlipidemia, unspecified; M19.90 Unspecified osteoarthritis, unspecified site; F10.10 Alcohol abuse, uncomplicated; Z88.5 Allergy status to narcotic agent; Z96.643 Presence of artificial hip joint, bilateral; Z87.891 Personal history of nicotine dependence; Z83.3 Family history of diabetes mellitus; Z82.49 Family history of ischemic heart disease and other diseases of the circulatory system; E66.9 Obesity, unspecified; Z68.29 Body mass index [BMI] 29.0-29.9, adult
CPT/HCPCS: 80048; 80053; 80307; 81003; 82550; 82553; 82947; 83735; 84439; 84443; 84481; 84484; 85014; 85018; 85025; 85027; 86592; 93005; 93306; 94760; 94761; 94762; 97116; 97161; 97530; 97535; C1713; J0282; J0330; J0690; J1160; J1170; J1815; J2250; J2795; J3010; J3411; J3475; J3490; J7042